=== PATIENT | female | born 1990 | race Caucasian/White ===

== ENCOUNTER → 2018-08-12 | Outpatient (CLI) | payer OTHER ==
[~2018-08-12] VITALS: Ht 177.8 cm; Wt 104.8 kg
[~2018-08-12] MED LIST: SINCALIDE 2.1 MCG in IV NORMAL SALINE 50ML 30 ML IV ONE
--- NOTE | 2018-08-12 09:13 | RAD ---
Limited abdomen ultrasound study of the right upper quadrant Clinical indications: Abdominal pain for couple of months which is constant. FINDINGS: The gallbladder is distended measuring up to 10 cm. No gallstones or biliary sludge or gallbladder wall thickening is seen. The extra hepatic bile duct measures 4.7 mm in caliber which is normal. The liver is homogeneous without mass and measures 16.9 cm in length which is normal. No focal enlargement of the pancreas is seen. The length of the right kidney is 11.8 cm. No hydronephrosis or renal mass or perinephric fluid collection is seen on the right side. IMPRESSION: Distended gallbladder without gallstones or gallbladder wall thickening. If biliary dyskinesia is a possibility, then a hepatobiliary scan with gallbladder ejection fraction may be helpful for further evaluation. Electronically signed by: Roddy Vinson MD (08/12/2018 9:10 AM) [facility]
--- NOTE | 2018-08-12 12:21 | RAD ---
EXAM: HEPATOBILIARY SCINTIGRAPHY WITH GALLBLADDER EJECTION FRACTION. HISTORY: Epigastric pain for 2 months. TECHNIQUE: Scintigraphic images are obtained of the liver and biliary system following intravenous administration of 5.5 mCi of technetium-99m Choletec. After filling of the gallbladder, 2.1 mcg of sincalide were infused and the gallbladder ejection fraction calculated. FINDINGS: There is prompt hepatic clearance of tracer from the blood pool. There is homogeneous distribution throughout the liver. There is normal filling of the gallbladder and normal emptying into the biliary system and small bowel. The gallbladder ejection fraction is 36.5% (normal >35%). IMPRESSION: 1. Borderline decreased but normal gallbladder ejection fraction. Electronically signed by: Yogesh Dang MD (08/12/2018 12:18 PM) [id number]
== END | disposition home or self-care (01) ==
LOC: US 07:26
PROVIDERS: ATTEND Internal Medicine Gastroenterology
DX: R10.13 Epigastric pain (principal)
CPT/HCPCS: 76705; 78227; A9537; J2805